=== PATIENT | male | born 1990 | race Caucasian/White ===

== ENCOUNTER 2017-03-02 10:22 | Emergency (ER) | payer BC ==
[~2017-03-02] VITALS: Ht 175.3 cm; Wt 65.9 kg
[~2017-03-02 10:22] MED LIST: AMITRIPTYLINE10 MG PO; AMITRIPTYLINE25 MG PO; KLONOPIN0.5 MG PO; NO HOME MEDICATIONS; VALIUM 5MG T5 MG/TAB PO; VALIUM5 MG PO; ZOFRAN 4MG T4 MG/TAB PO
[2017-03-02 10:28] VITALS: BP 145/86; PULSE 92; TEMP 98.2
[2017-03-02] MEDS ORDERED: KLONOPIN 0.5MG0.5 MG PO ×2 (10:30→10:56)
== END 2017-03-02 11:04 | disposition home or self-care (01) ==
LOC: COL.ER 10:22
DX: Z76.0 Encounter for issue of repeat prescription (principal); F41.0 Panic disorder [episodic paroxysmal anxiety]; Z98.890 Other specified postprocedural states

== ENCOUNTER 2017-03-12 09:36 | Emergency (ER) | payer BC ==
[~2017-03-12] VITALS: Ht 175.3 cm; Wt 62.3 kg
[~2017-03-12 09:36] MED LIST changes: +KLONOPIN 0.5MG0.5 MG PO
[2017-03-12 09:38] VITALS: BP 126/73; PULSE 99; TEMP 98.1
[2017-03-12] MEDS ORDERED: KLONOPIN 0.5MG0.5 MG PO (10:09)
== END 2017-03-12 10:25 | disposition home or self-care (01) ==
LOC: COL.ER 09:36
DX: F41.9 Anxiety disorder, unspecified (principal); Z76.0 Encounter for issue of repeat prescription

== ENCOUNTER 2017-04-12 15:17 | Emergency (ER) | payer BC ==
[~2017-04-12] VITALS: Ht 175.3 cm; Wt 63.6 kg
[2017-04-12 15:25] VITALS: BP 120/61; PULSE 96; TEMP 98.2
== END 2017-04-12 16:54 | disposition home or self-care (01) ==
LOC: COL.ER 15:17
DX: S39.011A Strain of muscle, fascia and tendon of abdomen, initial encounter (principal); Z98.818 Other dental procedure status; Z90.89 Acquired absence of other organs; Z98.890 Other specified postprocedural states; X50.0XXA Overexertion from strenuous movement or load, initial encounter; Y92.481 Parking lot as the place of occurrence of the external cause